=== PATIENT | female | born 1950 | race Caucasian/White ===

== ENCOUNTER → 2021-10-19 | Outpatient (CLI) | payer MEDICARE | LOC: ORTHO 08:08 | PROVIDERS: ATTEND Orthopaedic Surgery | DX: S82.001A Unspecified fracture of right patella, initial encounter for closed fracture (principal); X58.XXXA Exposure to other specified factors, initial encounter | CPT/HCPCS: 99203 ==

== ENCOUNTER → 2021-11-02 | Outpatient (CLI) | payer MEDICARE ==
--- NOTE | 2021-11-02 08:53 | Diagnostic Imaging Report ---
INDICATION: Follow-up fracture. Time of Exam: 8:16 AM Comparison is made with prior radiographs from 10/14/2021. Two views of the right knee again demonstrate a fracture through the patella in the mid and lower pole. Fracture lines remain visible but alignment is anatomic. There are some degenerative changes of the medial and patellofemoral compartments. There is some spurring of the tibial spines. No effusion is seen. IMPRESSION: Stable patellar fracture showing anatomic alignment when compared with exam from 10/14/2021. Dictated by: Dictated on workstation # [id number]
== END ==
LOC: ORTHO 08:06
PROVIDERS: ATTEND Orthopaedic Surgery
DX: S82.034D Nondisplaced transverse fracture of right patella, subsequent encounter for closed fracture with routine healing (principal); X58.XXXD Exposure to other specified factors, subsequent encounter
CPT/HCPCS: 73560; G0463; 99213

== ENCOUNTER → 2021-11-23 | Outpatient (CLI) | payer MEDICARE ==
--- NOTE | 2021-11-23 08:58 | Diagnostic Imaging Report ---
Indication: Followup patellar fracture. Time of Exam: 8:36 AM Correlation is made with prior radiograph from 11/02/2021. 2 views of the right knee again demonstrate a fracture involving the inferior pole of the patella. There is some blurring of the fracture line consistent with some healing however fracture line does remain partly visible. Alignment is anatomic. Distal femur as well as proximal tibiofibular intact. There is medial compartmental degenerative change with joint space narrowing and marginal spurring. There is spurring of the tibial spines. No joint effusion is seen. IMPRESSION: Healing patellar fracture showing anatomic alignment. Dictated by: Dictated on workstation # [id number]
== END ==
LOC: ORTHO 08:11
PROVIDERS: ATTEND Orthopaedic Surgery
DX: S82.001A Unspecified fracture of right patella, initial encounter for closed fracture (principal); X58.XXXA Exposure to other specified factors, initial encounter
CPT/HCPCS: 73560; G0463; 99213

== ENCOUNTER → 2021-12-26 | Outpatient (CLI) | payer MEDICARE ==
--- NOTE | 2021-12-26 09:13 | Diagnostic Imaging Report ---
EXAMINATION: Right knee, two views. HISTORY: Patellar fracture. COMPARISON: 11/23/2021. FINDINGS: There is unchanged alignment of a healing transverse fracture of the patella. No other fracture is seen. No effusion. No dislocation. IMPRESSION: Unchanged healing transverse fracture of the right patella. Dictated by: Dictated on workstation # [id number]
== END ==
LOC: ORTHO 08:07
PROVIDERS: ATTEND Orthopaedic Surgery
DX: Z47.89 Encounter for other orthopedic aftercare (principal); S82.001D Unspecified fracture of right patella, subsequent encounter for closed fracture with routine healing; X58.XXXD Exposure to other specified factors, subsequent encounter
CPT/HCPCS: 73560; G0463; 99213

== ENCOUNTER → 2022-03-08 | Outpatient (CLI) | payer MEDICARE | LOC: ORTHO 11:30 | PROVIDERS: ATTEND Orthopaedic Surgery | DX: S72.002D Fracture of unspecified part of neck of left femur, subsequent encounter for closed fracture with routine healing (principal); X58.XXXD Exposure to other specified factors, subsequent encounter | CPT/HCPCS: 99213 ==

== ENCOUNTER → 2022-03-21 | Outpatient (CLI) | payer MEDICARE | LOC: ORTHO 14:00 | PROVIDERS: ATTEND Orthopaedic Surgery | DX: M16.12 Unilateral primary osteoarthritis, left hip (principal); K21.9 Gastro-esophageal reflux disease without esophagitis; E78.00 Pure hypercholesterolemia, unspecified | CPT/HCPCS: 99213 ==